=== PATIENT | female | born 1980 | race Caucasian/White ===

== ENCOUNTER 2018-02-17 10:41 | Outpatient (CLI) | payer OTHER ==
[~2018-02-17] VITALS: Ht 152.4 cm; Wt 93.9 kg
[2018-02-17 10:49] VITALS: BP 143/97
[2018-02-17] MEDS ORDERED: PHEN37.53 PO (10:54)
[2018-02-17] MEDS ORDERED: SERT50TA9 PO (10:54)
[2018-02-17] MEDS ORDERED: BUSP5TAB59 PO (10:54)
[2018-02-17 11:14] LABS: BASOPHILS % (AUTO) 0 % (0-10); EOSINOPHILS # (AUTO) 0.1 10^3/uL (0.0-0.3); EOSINOPHILS % (AUTO) 2 % (0-10); HEMATOCRIT 39 % (35-52); HEMOGLOBIN 13.6 G/DL (11.5-16.0); LYMPHOCYTES # (AUTO) 2.3 X 10^3 (1.0-4.0); LYMPHOCYTES % (AUTO) 37 % (12-44); MEAN CORPUSCULAR HEMOGLOBIN 29 PG (25-34); MEAN CORPUSCULAR HGB CONC 35 G/DL (32-36); MEAN CORPUSCULAR VOLUME 84 FL (80-99); MEAN PLATELET VOLUME 9.1 FL (7.4-10.4); MONOCYTES # (AUTO) 0.3 X 10^3 (0.0-1.0); MONOCYTES % (AUTO) 5 % (0-12); NEUTROPHILS # (AUTO) 3.4 X 10^3 (1.8-7.8); NEUTROPHILS % (AUTO) 56 % (42-75); PLATELET COUNT 308 10^3/uL (130-400); RED BLOOD COUNT 4.65 10^6/uL (4.35-5.85); RED CELL DISTRIBUTION WIDTH 14.2 % (10.0-14.5); WHITE BLOOD COUNT 6.1 10^3/uL (4.3-11.0)
[2018-02-23] MEDS ORDERED: DOCU-143 PO (13:13)
[2018-02-23] MEDS ORDERED: IBUP-1780 PO (13:13)
[2018-02-23] MEDS ORDERED: OXYC-197 PO (13:13)
[2018-02-24] MEDS ORDERED: NORG1TAB14 PO (07:54)
== END 2018-02-17 11:07 | disposition home or self-care (01) ==
LOC: PREOP 10:41
PROVIDERS: ATTEND Obstetrics & Gynecology
DX: Z01.812 Encounter for preprocedural laboratory examination (principal); Z11.2 Encounter for screening for other bacterial diseases; R19.09 Other intra-abdominal and pelvic swelling, mass and lump; N92.1 Excessive and frequent menstruation with irregular cycle; N83.209 Unspecified ovarian cyst, unspecified side; R10.2 Pelvic and perineal pain; D64.9 Anemia, unspecified
CPT/HCPCS: 36415; 85025; 86850; 86900; 86901; 87081

== ENCOUNTER 2018-02-23 10:56 | Day surgery (SDC) | payer OTHER ==
[~2018-02-23] VITALS: Ht 152.4 cm; Wt 93.9 kg
[~2018-02-23 10:56] MED LIST: BUSP5TAB59 PO; PHEN37.53 PO; SERT50TA9 PO
[2018-02-23 11:05] VITALS: BP 143/90
[2018-02-23] MEDS ORDERED: ceFAZolin INJECTION 1,000 MG in NS (IVPB) 50 ML IV ONE (11:15)
[2018-02-23] MEDS: LACTATED RINGERS 1,000 ML IV PRN ×2 (11:55→14:51)
[2018-02-23] MEDS ORDERED: ONDANSETRON 4 MG/2 ML (SDV) Z0FRAN ONE (12:49)
[2018-02-23] MEDS ORDERED: DEXAMETHASONE 10 MG/ML (DECADRON) 1 ML VIAL ONE (12:49)
[2018-02-23] MEDS ORDERED: LIDOCAINE PF 2% 5 ML (XYLOCAINE) VIAL ONE (12:49)
[2018-02-23] MEDS ORDERED: proPOfol 200 MG/20 ML (DIPRIVAN) VIAL IV ONE ×2 (12:49→15:00)
[2018-02-23] MEDS ORDERED: SEVOFLURANE (ULTANE) 15 ML INHAL SOLN ONE ×6 (12:49→15:11)
[2018-02-23] MEDS ORDERED: MIDAZOLAM 2 MG/2 ML (VERSED) VIAL ONE (12:50)
[2018-02-23] MEDS ORDERED: fentaNYL INJECTION 100 MCG/2 ML AMP ONE ×4 (12:50→14:51)
[2018-02-23] MEDS ORDERED: ROCURONIUM 10 MG/ML 5 ML SYRINGE IV ONE ×2 (12:57→15:09)
--- NOTE | 2018-02-23 12:59 | Anesthesia-General Post-Op ---
General Patient Condition Mental Status/LOC: Same as Preop Cardiovascular: Satisfactory Nausea/Vomiting: Absent Respiratory: Satisfactory Pain: Controlled Complications: Absent Post Op Complications Complications None Follow Up Care/Instructions Patient Instructions None needed. Anesthesia/Patient Condition Patient Condition Patient is doing well, no complaints, stable vital signs, no apparent adverse anesthesia problems. No complications reported per nursing. JAMES BEARDEN CRNA Feb 23, 2018 12:59
[2018-02-23] MEDS ORDERED: BUP/EPI 0.5% 1:200,000 (SENSORCAINE) 30 ML VIAL ONE (13:00)
--- NOTE | 2018-02-23 13:10 | Progress Note-Pre Operative ---
Pre-Operative Progress Note H&P Reviewed The H&P was reviewed, patient examined and no changes noted. Date Seen by Provider: Feb 23, 2018 Time Seen by Provider: 13:10 Date H&P Reviewed: Feb 23, 2018 Time H&P Reviewed: 13:10 Pre-Operative Diagnosis: DUB/menorrhagia/chronic pelvic URSULA FONTANEZ MD Feb 23, 2018 1:10 pm
--- NOTE | 2018-02-23 13:11 | Progress Note-Post Operative ---
Post-Operative Progess Note Surgeon (s)/[place] Cutter (s) Surgeon URSULA FONTANEZ MD [place] Cutter: Ani Mayo Pre-Operative Diagnosis DUB/menorrhagia/chronic pelvic Post-Operative Diagnosis Same with abnormal appendix and withpathology pending Procedure & Operative Findings Date of Procedure 02/23/18 Procedure Performed/Findings TL H with BSO and LS appy Anesthesia Type GETA Estimated Blood Loss Estimated blood loss (mL): min Specimens/Packing Specimens Removed Uterus tubes and ovaries, and appendix Packing: None URSULA FONTANEZ MD Feb 23, 2018 13:11
[2018-02-23] MEDS ORDERED: OXYC-197 PO (13:13)
[2018-02-23] MEDS ORDERED: DOCU-143 PO (13:13)
[2018-02-23] MEDS ORDERED: IBUP-1780 PO (13:13)
--- NOTE | 2018-02-23 13:15 | Discharge Instructions ---
Discharge Instructions Discharge Medications New, Converted or Re-Newed RX: RX on Chart Patient Instructions Patient Instructions: As directed Return to The Hospital For: As directed Activity & Diet Discharge Diet: No Restrictions Activity as Tolerated: No Orders-Post D/C & Referrals Follow Up Appt: Return to clinic on Sunday, February 25, 2018 at 930 a.m. for staple removal Call to make follow up appt. for patient in 4 weeks. Activity: Rest for 24 hours, than as tolerated. Wound Care: May remove Band-Aid tomorrow. Replace as desired. Keep incisions clean and dry. Wash daily with soap and water. Please call in RX to patient pharmacy. Diet: As tolerated-Clear Liquids only if nauseated. Tomorrow, may shower or tub bathe as desired. No driving for 24 hours, no alcoholic beverages for 24 hours, and nothing per vagina (no tampons, douching, or intercourse) for 8 weeks. Patient to return to the clinic as soon as possible for: Temperature greater than 101F, Severe Pain, Foul discharge from incision or vagina, Excessive Bleeding (more than a period). URSULA FONTANEZ MD Feb 23, 2018 1:15 pm
[2018-02-23] MEDS ORDERED: PROMETHAZINE INJ 25 MG/ML (PHENERGAN) AMP ONE (14:29)
[2018-02-23] MEDS ORDERED: morphine INJ 10 MG/ML 1ML (SYR OR VIAL) ONE (14:29)
[2018-02-23] MEDS ORDERED: KETOROLAC 30 MG/ML VIAL ONE (14:29)
[2018-02-23] MEDS ORDERED: HYDROmorphone 1 MG/ML (DILAUDID) 1 ML SYRINGE ONE (14:30)
[2018-02-23] MEDS ORDERED: ESTROGENS CONJ IV 25 MG/5 ML (PREMARIN) VIAL ONE (14:30)
[2018-02-23] MEDS ORDERED: NEOSTIGMINE 1 MG/ML 5 ML SYRINGE ONE (15:13)
[2018-02-23] MEDS ORDERED: GLYCOPYRROLATE 0.2 MG/ML (ROBINUL) 2 ML VIAL ONE ×2 (15:13)
[2018-02-23] MEDS ORDERED: ONDANSETRON 4 MG/2 ML (SDV) Z0FRAN IVP PRN ×2 (15:45→16:45)
[2018-02-23] MEDS ORDERED: HYDROmorphone 1 MG/ML (DILAUDID) 1 ML SYRINGE IV PRN (15:45)
[2018-02-23] MEDS ORDERED: fentaNYL INJECTION 100 MCG/2 ML AMP IVP PRN (15:45)
[2018-02-23] MEDS ORDERED: MEPERIDINE (DEMEROL) INJ 50 MG/ML IVP PRN (15:45)
[2018-02-23] MEDS ORDERED: oxyCODONE/APAP 5/325MG (PERCOCET 5) TABLET PO PRN (16:45)
[2018-02-23] MEDS ORDERED: MEPERIDINE (DEMEROL) INJ 100 MG/ML IM PRN (16:45)
[2018-02-23] MEDS ORDERED: PROMETHAZINE INJ 25 MG/ML (PHENERGAN) AMP IM PRN (16:45)
[2018-02-23 17:10] VITALS: BP 148/88
[2018-02-23] MEDS: D5 LR IV SOLUTION 1,000 ML IV SCH (17:15)
[2018-02-23] MEDS: KETOROLAC 30 MG/ML VIAL IVP SCH (17:35)
[2018-02-23 20:00] VITALS: BP 135/86
[2018-02-24] MEDS: D5 LR IV SOLUTION 1,000 ML IV SCH (00:50)
[2018-02-24] MEDS: KETOROLAC 30 MG/ML VIAL IVP SCH ×2 (00:50→06:40)
--- NOTE | 2018-02-24 00:50 | OPERATIVE REPORT ---
DATE OF SERVICE: 02/23/2018 PREOPERATIVE DIAGNOSES: Dysfunctional uterine bleeding, menorrhagia and pelvic pain. POSTOPERATIVE DIAGNOSES: Dysfunctional uterine bleeding, menorrhagia and pelvic pain with likely appendicitis. OPERATIVE PROCEDURES: Total laparoscopic hysterectomy with bilateral salpingo-oophorectomy as well as laparoscopic adhesiolysis and laparoscopic appendectomy. OPERATIVE DESCRIPTION: With the patient in the supine position under satisfactory general anesthesia, the patient was prepped and draped in usual fashion for abdominal and vaginal surgery after being repositioned in the low dorsal lithotomy position. The weighted speculum was placed in the posterior fornix of the vagina, cervix exposed and grasped anteriorly with single tooth tenaculum. Uterus was sounded to 9 cm with uterine sound. The cervix was then serially dilated with Hu dilators to accommodate a Magdalena II manipulator, which was placed using a 6 mm x 8 cm uterine probe and a 30 mm colpotomy ring. Sutures of #1 Vicryl placed at 3 and 9 o'clock position of the cervix for stabilization to the manipulator. The patient brought in low dorsal lithotomy position. A 12 mm incision was made 4 cm superior to the umbilicus, 8 mm incisions were made 9 cm lateral to the umbilicus. All incision sites were infiltrated with 0.25% Marcaine with epinephrine prior to incision. The Veress needle was placed through the upper midline incision. Correct placement was confirmed with water drop test. The abdomen was insufflated with 2.4 liters of carbon dioxide. The Veress needle was removed and a 12 mm Optiview laparoscopic port placed. The abdomen was transilluminated and ports of 8 mm were placed through the 8 mm incisions in the lateral sides. It was noted at this point that the camera port was on the verge of being too short. It was replaced with a long 12 mm cannula passing it over a blunt probe. With satisfactory ports in place, the patient placed in Trendelenburg allowing the bowel to spill out of the pelvis. There were some adhesions of the omentum to the anterior abdominal wall that were taken down later. The da Zeke column was advanced on the patient and docked and then operative instruments were placed. At the console using the monopolar shear on the right and a bipolar fenestrated grasper on the left, the omental adhesions to the anterior abdominal wall were taken down with sharp and blunt dissection. This allowed the omentum to spill up out of the pelvis with the bowel. The uterus was examined. It was quite mottled and boggy appearing, which was consistent with adenomyosis. Both ovaries had ovarian cyst. There was obvious endometriosis in the pelvis and on the left fallopian tube and the right fallopian tube and very likely on the appendix. The appendix was identified. It was adhered in place and was atretic appearing in its proximal portion and inflamed and indurated in its distal portion. Decision was made to take the appendix out. While the current instruments were in, we skeletonized the mesoappendix over to the base of the appendix for removal later. The appendix was left in situ for the moment. Now using a vessel sealer on the right and bipolar fenestrated grasper on the left, the right tube and ovary were grasped and elevated. The IP ligament was clamped, cauterized and divided with the vessel sealer that was continued across the mesovarium, then across the round ligament, the broad ligaments and down on to the cardinal ligament. Same procedure was performed on the left with the same result allowing for eventual removal of the tubes and ovaries with the lower uterine segment; peritoneum was somewhat scarred to the lower uterine segment. These adhesions were taken down with very careful and meticulous dissection allowing the bladder to spill down off of the lower uterine segment. This exposed the colpotomy ring anteriorly with a colpotomy incision made at 12 o'clock position with the cautery and that incision was continued circumferentially until the entire colpotomy ring was exposed. The uterus with tubes and ovaries still attached was extracted through the vagina. The vaginal cuff was closed with two sutures of V-Loc barbed suture starting first on the right angle and continuing just past the midportion of the vaginal cuff and then from the left doing the same and the peritoneum was brought back down on the vaginal cuff with the last few stitches on each side. Care was taken to ensure inclusion of the pedicles of the uterine vessels with the first couple of stitches on each side. Hemostasis was complete. The da Zeke instruments were removed. The da Zeke column was then docked and then using conventional 5 mm laparoscope in the left lateral port, a stapler and the umbilical port and a grasper in the right lateral port, the appendix was grasped and elevated. The stapler was placed across the base of the appendix that was fired severing the appendix from its attachments. This was placed in an Endobag and brought out through the umbilical port. The stump of the appendix was copiously irrigated and then treated with several drops of Betadine solution. The pelvis was irrigated and the small amount of blood that was lost with the surgery probably less than 15 mL was aspirated out. There was no bleeding. There was no abnormal pathology. Procedure at this point was complete and terminated. The operative instruments were removed under direct vision as were the ports. The abdomen was evacuated off the insufflating gas in the process. The skin incisions were closed with ariel. The fascia at the supraumbilical incision closed with [id number] suture of 2-0 Vicryl. The speculum was replaced in the vagina. There was some bleeding and a small laceration about a centimeter distal to the left angle of the vagina. This was sutured with [id number] suture of 2-0 Vicryl for complete hemostasis. The vaginal cuff itself was completely hemostatic and completely reapproximated. Now with sponge, needle count was correct, hemostasis assured. Estimated blood loss was minimal. The patient was uneventfully awakened from general anesthesia and transferred to the recovery room in stable condition. Job ID: [id number] DocumentID: [id number] Dictated Date: 02/23/2018 15:29:50 Cytogeneticist Date: 02/24/2018 00:49:59 Dictated By: URSULA FONTANEZ MD
[2018-02-24 00:55] VITALS: BP 118/74
[2018-02-24 05:00] VITALS: BP 105/69
--- NOTE | 2018-02-24 07:53 | Progress Note-Standard ---
Standard Progress Note Progress Notes/Assess & Plan Date Seen by Provider: Feb 24, 2018 Time Seen by Provider: 07:52 Progress/Assessment & Plan This patient is without complaint. She is ambulating, tolerating by mouth, has good pain control. Patient denies chest pain, denies shortness of breath, nausea vomiting. Patient has not voided yet the bladder problems ongoing Vital Signs Date Time Temp Pulse Resp B/P (MAP) Pulse Ox O2 Delivery O2 Flow Rate FiO2 02/24/18 05:00 98.6 78 18 105/69 (81) 95 Room Air 02/24/18 00:55 99.1 93 18 118/74 (89) 96 Room Air 02/23/18 20:42 Room Air 02/23/18 20:00 97.7 85 18 135/86 (102) 97 Room Air 02/23/18 17:10 98.2 76 14 148/88 (108) 98 Room Air 02/23/18 11:05 98.5 74 16 143/90 (107) 96 Room Air I & O 02/24/18 07:00 Intake Total 4125 ml Output Total 3060 ml Balance 1065 ml Vital signs are stable. Patient is afebrile. The abdomen is benign. She wishes ovaries appeared no Homans sign. Assessment and plan postoperative day 1 doing well plan is for discharge home with follow-up in clinic Final Diagnosis DUB/menorrhagia URSULA FONTANEZ MD Feb 24, 2018 7:53 am
[2018-02-24] MEDS ORDERED: NORG1TAB14 PO (07:54)
[2018-02-24] MEDS ORDERED: DOCUSATE SODIUM 100 MG (COLACE) CAP PO SCH (09:00)
[2018-02-24 09:10] VITALS: BP 116/75
[2018-02-24] MEDS ORDERED: IBUPROFEN 800 MG (MOTRIN) TAB PO SCH (16:45)
== END 2018-02-24 10:20 | disposition home or self-care (01) ==
LOC: SDC 10:56 → WS 16:35 → SDC 02-24 10:20
PROVIDERS: ATTEND Obstetrics & Gynecology
DX: N85.8 Other specified noninflammatory disorders of uterus (principal); N72 Inflammatory disease of cervix uteri; N80.0 Endometriosis of uterus; N83.8 Other noninflammatory disorders of ovary, fallopian tube and broad ligament; N83.201 Unspecified ovarian cyst, right side; N83.12 Corpus luteum cyst of left ovary
CPT/HCPCS: 36415; 84703; 86850; 86900; 86901; 88304; 88307; 94664

== ENCOUNTER → 2022-11-04 | Outpatient (CLI) | payer OTHER ==
[~2022-11-04] MED LIST changes: +DOCU-143 PO; +GADOTERATE 0.5 MMOL/ML (CLARISCAN) 20 ML VIAL IV ONE; +IBUP-1780 PO; +NORG1TAB14 PO; +OXYC1TAB87 PO; -PHEN37.53 PO; +PHEN37.58 PO; +SERT-413 PO; -SERT50TA9 PO
--- NOTE | 2022-11-04 12:47 | Diagnostic Imaging Report ---
EXAMINATION: MRI of the abdomen with and without contrast. TECHNIQUE: Multiplanar, multisequence MR images of the abdomen were obtained with and without intravenous contrast. HISTORY: Right liver lesion evaluation COMPARISON: None available. FINDINGS: Liver: There is an area within the central liver which demonstrates loss of signal on out of phase images. Total area measures approximately 5.7 x 6.2 cm. There is no suspicious enhancement. Vessels traverse through this area without mass effect. This area is mildly T2 hyperintense which suppresses on the fat suppression images. No suspicious enhancing hepatic lesion. Contour of the liver is normal. Hepatic and portal veins are patent. Gallbladder and Bile Ducts: The gallbladder is surgically absent. No biliary duct dilatation. Pancreas: The pancreas is normal in volume, signal intensity and enhancement. There is no dilation of the main pancreatic duct. Kidneys: There is no hydronephrosis. Adrenal glands: There is no adrenal gland nodule or thickening. Spleen: The spleen is normal in size without focal lesion. Lymph Nodes: There is no suspicious lymphadenopathy. Other: There is no ascites. IMPRESSION: 1. Heterogeneous area within the central liver with imaging characteristics suggesting geographic hepatic steatosis. No suspicious enhancing hepatic lesion. 2. Otherwise unremarkable abdominal MRI. Dictated by: Dictated on workstation # [id number]
== END ==
LOC: RAD 08:20
PROVIDERS: ATTEND Student in an Organized Health Care Education/Training Program
DX: R16.0 Hepatomegaly, not elsewhere classified (principal)
CPT/HCPCS: 74183

== ENCOUNTER 2023-06-24 18:39 | Emergency (ER) | payer OTHER ==
[~2023-06-24] VITALS: Ht 152 cm; Wt 80.0 kg
[~2023-06-24 18:39] MED LIST changes: -GADOTERATE 0.5 MMOL/ML (CLARISCAN) 20 ML VIAL IV ONE
[2023-06-24 18:48] VITALS: BP 113/73
[2023-06-24] MEDS ORDERED: SEMA2PEN (18:54)
[2023-06-24] MEDS ORDERED: EMPA10TA (18:54)
[2023-06-24] MEDS ORDERED: DULA4.5P (18:54)
[2023-06-24] MEDS ORDERED: ATOR10TA66 (18:54)
--- NOTE | 2023-06-24 19:14 | ED Lower Extremity ---
General Chief Complaint: Lower Extremity Stated Complaint: RT FOOT INJ, BRUSING, SWELLING - FALL Nursing Triage Note: stepped off curb twisting right foot approx. 1530. c/o bruising /pain History of Present Illness Date Seen by Provider: Jun 24, 2023 Time Seen by Provider: 18:48 Initial Comments 42-year-old female presents for right lateral foot pain. She was stepping off a curb when she twisted her foot. She denies any ankle pain. She is able to ambulate with trace discomfort in her foot. She has noted swelling to the lateral aspect of her right foot. No previous foot or ankle injuries. She has not taken Tylenol or ibuprofen. She has tried elevation and ice. Onset: this afternoon Severity: mild Pain/Injury Location: right foot Method of Injury: twisted Modifying Factors: Improves With Rest Allergies and Home Medications Allergies Coded Allergies: No Known Drug Allergies (Unverified , 02/17/18) Patient Home Medication List Home Medication List Reviewed: Yes Atorvastatin Calcium (Atorvastatin Calcium) 10 Mg Tablet, (Reported) Entered as Reported by: YANETH RICO on 06/24/231853 Last Action: New Order Dulaglutide (Trulicity) 4.5 Mg/0.5 Ml Pen.injctr, (Reported) Entered as Reported by: YANETH RICO on 06/24/231853 Last Action: New Order Empagliflozin (Jardiance) 10 Mg Tablet, (Reported) Entered as Reported by: YANETH RICO on 06/24/231853 Last Action: New Order Semaglutide (Ozempic) 2 Mg/0.75 Ml (8 Mg/3 Ml) Pen.injctr, (Reported) Entered as Reported by: YANETH RICO on 06/24/231853 Last Action: New Order Discontinued Medications Buspirone HCl (Buspirone HCl) 5 Mg Tablet, 5 MG PO BID, (Reported) Discontinued Reason: No Longer Taking Entered as Reported by: JANNY HEALY on 02/17/18 1054 Last Action: Discontinued Docusate Sodium (Colace) 100 Mg Capsule, 100 MG PO BID Discontinued Reason: No Longer Taking Prescribed by: URSULA JENKINS on 02/23/18 1313 Last Action: Discontinued Ibuprofen (Ibuprofen) 800 Mg Tablet, 800 MG PO Q6H PRN for PAIN Discontinued Reason: No Longer Taking Prescribed by: URSULA JENKINS on 02/23/18 1313 Last Action: Discontinued Norgestimate-Ethinyl Estradiol (Sprintec 28 Day Tablet) 1 Each Tablet, 1 EACH PO DAILY Discontinued Reason: No Longer Taking Prescribed by: URSULA JENKINS on 02/24/18 0754 Last Action: Discontinued Oxycodone HCl/Acetaminophen (Percocet 5-325 mg Tablet) 1 Each Tablet, 1-2 EACH PO Q4H Discontinued Reason: No Longer Taking Prescribed by: URSULA JENKINS on 02/23/18 1313 Last Action: Discontinued Phentermine HCl (Phentermine HCl) 37.5 Mg Tablet, 37.5 MG PO DAILY, (Reported) Discontinued Reason: No Longer Taking Entered as Reported by: JANNY HEALY on 02/17/18 1054 Last Action: Discontinued Sertraline HCl (Sertraline HCl) 50 Mg Tablet, 50 MG PO HS, (Reported) Discontinued Reason: No Longer Taking Entered as Reported by: JANNY HEALY on 02/17/18 1054 Last Action: Discontinued Review of Systems Constitutional: no symptoms reported, see HPI Musculoskeletal: see HPI, joint pain (Right lateral foot), muscle pain All Other Systems Reviewed Negative Unless Noted: Yes Past Ffcaiys-Pomkys-Jwofdo Hx Patient Social History Tobacco Use?: No Substance use?: No Alcohol Use?: No Pt feels they are or have been: No Immunizations Up To Date PED Vaccines UTD: No Seasonal Allergies Seasonal Allergies: No Past Medical History Surgery/Hospitalization HX: , cholecystectomy, hysterectomy, breast reduction, hld Surgeries: Yes (C/S X3, BREAST REDUCTION, ) Respiratory: No Cardiac: No Neurological: No Reproductive Disorders: Yes Genitourinary: No Gastrointestinal: No Musculoskeletal: No Endocrine: No HEENT: No Cancer: No Psychosocial: Yes Anxiety, Depression Integumentary: No Blood Disorders: No (anemia with ) Family Medical History Reviewed Nursing Family Hx Hypertension 19 FATHER 19 MOTHER Physical Exam Vital Signs Vital Signs - First Documented 06/24/23 18:48 Temp 36.4 Pulse 80 Resp 16 B/P (MAP) 113/73 (86) Pulse Ox 99 O2 Delivery Room Air Capillary Refill : Less Than 3 Seconds Height, Weight, BMI Height: 5'0.00" Weight: 207lbs. 0.0oz. 93.975961nl; 34.00 BMI Method: General Appearance: WD/WN, no apparent distress Cardiovascular: normal peripheral pulses, regular rate, rhythm Respiratory: chest non-tender, lungs clear, normal breath sounds Ankles: right ankle non-tender, right ankle normal inspection, right ankle normal range of motion, right ankle no evidence of injury Feet: right foot bone tenderness ( fifth metatarsal), right foot limited range of motion, right foot pain, right foot soft tissue tenderness Neurologic/Psychiatric: no motor/sensory deficits, alert, normal mood/affect, oriented x 3 Skin: normal color, warm/dry Progress/Results/Core Measures Results/Orders My Orders Orders - TERRI FAY Foot, Right, 3 View (06/24/23 18:57) Vital Signs/I&O 06/24/23 18:48 Temp 36.4 Pulse 80 Resp 16 B/P (MAP) 113/73 (86) Pulse Ox 99 O2 Delivery Room Air Blood Pressure Mean: 86 Diagnostic Imaging Diagonstic Imaging: Xray Plain Films/CT/US/NM/MRI: other (foot) Comments NAME: EUSEBIA CASTRO [facility] REC#: [id number] PT STATUS: REG ER : 1980 PHYSICIAN: TERRI FAY ADMIT DATE: 06/24/23/ER Signed Date of Exam:06/24/23 FOOT, RIGHT, 3 VIEW FOOT, RIGHT, 3 VIEW INDICATION: Right foot pain COMPARISON: None available. TECHNIQUE: Three non-weightbearing views of foot were obtained. FINDINGS: No fracture or traumatic malalignment. No evidence of metatarsal stress fracture. Type II os navicularis. Small os peroneum. IMPRESSION: 1. No acute fracture or traumatic malalignment. Dictated by: Dictated on workstation # [id number] Dict: 06/24/231918 Trans: 06/24/231918 [facility] [id number] Interpreted by: SHIVANI JAY MD Electronically signed by: SHIVANI JAY MD 06/24/231918 Reviewed: Reviewed by Me Departure Impression Primary Impression: Sprain or strain of foot Disposition: 01 HOME, SELF-CARE Condition: Improved Departure-Patient Inst. Decision time for Depature: 19:15 Referrals: NO,LOCAL PHYSICIAN (PCP/Family) Primary Care Physician Patient Instructions: Foot Sprain (DC) Add. Discharge Instructions: Umesh wrap to right foot for the next 2 to 3 days. Activity as tolerated. You may alternate between Tylenol 650 mg and ibuprofen 600 mg every 4 hours for pain. Follow-up with your primary care provider if symptoms or not improving or worsen. Return to the emergency department for new, urgent healthcare problems. All discharge instructions reviewed with patient and/or family. Voiced understanding. TERRI FAY Jun 24, 2023 19:14
--- NOTE | 2023-06-24 19:21 | Diagnostic Imaging Report ---
FOOT, RIGHT, 3 VIEW INDICATION: Right foot pain COMPARISON: None available. TECHNIQUE: Three non-weightbearing views of foot were obtained. FINDINGS: No fracture or traumatic malalignment. No evidence of metatarsal stress fracture. Type II os navicularis. Small os peroneum. IMPRESSION: 1. No acute fracture or traumatic malalignment. Dictated by: Dictated on workstation # [id number]
== END 2023-06-24 19:29 | disposition home or self-care (01) ==
LOC: EDUNIT# 18:39 → ER 18:43
DX: S93.601A Unspecified sprain of right foot, initial encounter (principal); S96.911A Strain of unspecified muscle and tendon at ankle and foot level, right foot, initial encounter; X50.1XXA Overexertion from prolonged static or awkward postures, initial encounter
CPT/HCPCS: 73630